=== PATIENT | male | born 1955 | race Caucasian/White ===

== ENCOUNTER 2017-05-03 04:42 | Emergency (ER) | payer OTHER, MEDICARE ==
[2017-05-03 05:12] LABS: BASOPHIL 0.3 % (0-2); HCT 40.3 % (42.0-52.0); HGB 13.8 g/dl (13.2-18.0); LYMPHOCYTE 38.6 % (15-48); MCH 30.7 pg (25.0-31.0); MCHC 34.2 g/dL (32.0-36.0); MCV 89.6 fL (78.0-100.0); MONOCYTE 9.2 % (0-12); MPV 9.6 fL (6.0-9.5); NEUTROPHIL 47.9 % (41-80); PLT 298 K/uL (150-400); RDW 13.1 % (11.5-14.0); WBC 6.1 K/uL (4.0-10.5)
[2017-05-03 05:24] LABS: ALBUMIN 4.4 g/dL (3.4-4.8); BILIRUBIN - TOTAL 0.3 mg/dL (0.1-1.0); CREATININE 0.9 mg/dL (0.7-1.2); GLOBULIN (CALCULATION) 2.7 g/dL (2.2-4.2); POTASSIUM 4.5 mmol/L (3.5-5.1); TOTAL PROTEIN 7.1 g/dL (6.4-8.3)
[2017-05-03 06:27] LABS: BILIRUBIN NEGATIVE (NEGATIVE); BLOOD 3+ Ery/uL (NEGATIVE); CLARITY CLEAR (CLEAR); COLOR YELLOW (YELLOW); GLUCOSE (U) NORMAL (NORMAL); KETONE (U) NEGATIVE (NEGATIVE); LEUKOCYTES NEGATIVE Leu/uL (NEGATIVE); NITRITE NEGATIVE (NEGATIVE); PROTEIN NEGATIVE (NEGATIVE); SPECIFIC GRAVITY 1.025 (1.001-1.030); UROBILINOGEN 0.2 mg/dL (0.2-1.0)
[2017-05-03 06:36] LABS: URINARY RBC TNTC
[2017-05-03 06:37] LABS: BACTERIA TRACE; SQUAMOUS EPITHELIAL CELLS RARE; URINARY WBC RARE
== END 2017-05-03 07:38 | disposition home or self-care (01) ==
LOC: FER 04:42
PROVIDERS: Emergency Medicine Emergency Medical Services
DX: N13.2 Hydronephrosis with renal and ureteral calculous obstruction (principal); I10 Essential (primary) hypertension; Z87.442 Personal history of urinary calculi; Z79.899 Other long term (current) drug therapy
CPT/HCPCS: 36415; 80053; 81001; 85025; 96372; J0500; J1170; J1885; J2405

== ENCOUNTER 2021-01-25 11:07 | Emergency (ER) | payer MEDICARE, OTHER ==
[~2021-01-25 11:07] MED LIST: FLEXERIL10 MG PO; IBUPROFEN800 MG PO; OLMESARTAN MEDO40 MG PO; PREDNISONE 10MG10 MG PO; PREDNISONE 20MG20 MG PO; ZPAK PO
[2021-01-25 11:22] LABS: BASOPHIL 0.4 % (0-2); EOSINOPHIL 7.2 % (0-7); HCT 42.6 % (42.0-52.0); HGB 14.7 g/dl (13.2-18.0); LYMPHOCYTE 13.2 % (15-48); MCH 33.1 pg (25.0-31.0); MCHC 34.5 g/dL (32.0-36.0); MCV 95.9 fL (78.0-100.0); MONOCYTE 5.6 % (0-12); MPV 9.5 fL (6.0-9.5); NEUTROPHIL 72.2 % (41-80); NRBC 0; PLT 248 K/uL (150-400); RBC 4.44 M/uL (4.70-6.00); RDW 12.8 % (11.5-14.0); WBC 9.3 K/uL (4.0-10.5)
[2021-01-25 11:46] LABS: ALBUMIN 4.2 g/dL (3.4-5.0); BILIRUBIN - TOTAL 0.4 mg/dL (0.2-1.0); BUN/CREAT RATIO (CALC) 17.1 RATIO; CREATININE 0.76 mg/dL (0.67-1.17); GLOBULIN (CALCULATION) 2.8 g/dL; POTASSIUM 4.6 mmol/L (3.5-5.1); PRO-BNP 51 pg/mL (<125)
[2021-01-25] MEDS ORDERED: PREDNISONE 20MG20 MG PO (15:13)
== END 2021-01-25 15:50 | disposition home or self-care (01) ==
LOC: FER 11:07
PROVIDERS: Internal Medicine
DX: J98.01 Acute bronchospasm (principal); I10 Essential (primary) hypertension; E27.1 Primary adrenocortical insufficiency; Z20.822 Contact with and (suspected) exposure to COVID-19
CPT/HCPCS: 36415; 71045; 80053; 83880; 84484; 85025; 87040; 93005; 94640; 94664; J2930; U0002